=== PATIENT | male | born 1985 | race Two or more races ===

== ENCOUNTER 2022-03-28 17:54 | Inpatient (IN) | payer OTHER ==
[2022-03-28 20:35] VITALS: BMI 24.3
[2022-03-28] MEDS ORDERED: ONDANSETRON *ODT* 4 MG TABLET SL PRN (22:59)
[2022-03-28] MEDS ORDERED: BISMUTH SUBSALICYLATE 524 MG/30 ML PO PRN (22:59)
[2022-03-28] MEDS ORDERED: BENZOCAINE/MENTHOL (CHLORASEPTIC ) LOZENGE MM PRN (22:59)
[2022-03-28] MEDS ORDERED: MAG HYDROX/AL HYDROX/SIMETH 30 ML UNIT-DOSE CUP PO PRN (22:59)
[2022-03-28] MEDS ORDERED: MAGNESIUM HYDROX 2400MG/30ML ORAL SUSPENSION 30 ML CUP PO PRN (22:59)
[2022-03-28] MEDS ORDERED: NALOXONE HCL (KLOXXADO) 8 MG SPRAY NS PRN (22:59)
[2022-03-28] MEDS ORDERED: ACETAMINOPHEN 325 MG TABLET (FP) PO PRN ×2 (22:59)
[2022-03-28] MEDS ORDERED: LOPERAMIDE HCL 2 MG CAPSULE PO PRN (22:59)
[2022-03-28] MEDS ORDERED: IBUPROFEN 400 MG TABLET (FP) PO PRN (22:59)
[2022-03-28] MEDS ORDERED: POLYETHYLENE GLYCOL (HEALTHYLAX) 3350 17 GM PACKET PO PRN (22:59)
[2022-03-28] MEDS ORDERED: DICYCLOMINE HCL 10 MG CAPSULE PO PRN (22:59)
[2022-03-28] MEDS ORDERED: NICOTINE POLACRILEX 2 MG GUM BUC PRN (22:59)
[2022-03-28] MEDS ORDERED: chlordiazePOXIDE HCL 25 MG CAPSULE PO PRN (22:59)
[2022-03-29] MEDS: chlordiazePOXIDE HCL 25 MG CAPSULE PO SCH ×5 (02:42→22:19)
[2022-03-29] MEDS: NICOTINE 14 MG/24 HOURS TOPICAL PATCH TD SCH (10:40)
[2022-03-29] MEDS: PRENATAL VITAMINS W/ FOLIC ACID TABLET (FP) PO SCH (10:40)
[2022-03-29] MEDS ORDERED: FLU VACC QS2022-23(6MOS UP)/PF 60 MCG/0.5 ML SYRINGE IM ONE (12:00)
[2022-03-29 13:00] LABS: ALBUMIN 3.5 g/dl (3.4-5.0); BLOOD UREA NITROGEN 20.2 mg/dL (7-18)
[2022-03-29 13:03] LABS: CREATININE 0.9 mg/dL (0.55-1.3)
[2022-03-29 13:04] LABS: BILIRUBIN,TOTAL 0.4 mg/dL (0.2-1); TOT PROT 6.2 g/dl (6.4-8.2)
[2022-03-29 13:12] LABS: HEMATOCRIT 42.3 % (35.4-49); HEMOGLOBIN 13.9 GM/dL (11.7-16.9); MCH 28.7 pg (25.7-33.7); MCHC 32.8 g/dl (32.0-35.9); MEAN CELL VOLUME 87.6 fl (80-96); PLATELET COUNT 200 10^3/uL (134-434); RBC 4.83 M/mm3 (4.00-5.60); RDW 14.7 % (11.9-15.9); WHITE BLOOD COUNT 5.8 K/mm3 (4.0-10.0)
[2022-03-29] MEDS: MELATONIN 5 MG TABLETS PO SCH (22:19)
[2022-03-29] MEDS: THIAMINE HCL 100 MG TABLET (FP) PO SCH (22:19)
[2022-03-29] MEDS: OLANZapine 10 MG TABLET PO SCH (22:19)
[2022-03-29] MEDS: METHOCARBAMOL 500 MG TABLET PO PRN (22:19)
[2022-03-30] MEDS: chlordiazePOXIDE HCL 25 MG CAPSULE PO SCH ×4 (05:51→21:59)
[2022-03-30] MEDS: NICOTINE 14 MG/24 HOURS TOPICAL PATCH TD SCH (10:13)
[2022-03-30] MEDS: PRENATAL VITAMINS W/ FOLIC ACID TABLET (FP) PO SCH (10:13)
[2022-03-30] MEDS: MELATONIN 5 MG TABLETS PO SCH (21:58)
[2022-03-30] MEDS: THIAMINE HCL 100 MG TABLET (FP) PO SCH (21:58)
[2022-03-30] MEDS: METHOCARBAMOL 500 MG TABLET PO PRN (21:58)
[2022-03-30] MEDS: OLANZapine 10 MG TABLET PO SCH (21:59)
[2022-03-30] MEDS: IBUPROFEN 600 MG TABLET (FP) PO PRN (22:00)
[2022-03-31] MEDS ORDERED: chlordiazePOXIDE HCL 10 MG CAPSULE PO PRN
[2022-03-31] MEDS: chlordiazePOXIDE HCL 10 MG CAPSULE PO SCH ×4 (05:43→22:00)
[2022-03-31] MEDS: PRENATAL VITAMINS W/ FOLIC ACID TABLET (FP) PO SCH (10:08)
[2022-03-31] MEDS: NICOTINE 14 MG/24 HOURS TOPICAL PATCH TD SCH (10:08)
[2022-03-31] MEDS: IBUPROFEN 600 MG TABLET (FP) PO PRN (17:33)
[2022-03-31] MEDS: OLANZapine 10 MG TABLET PO SCH (21:59)
[2022-03-31] MEDS: THIAMINE HCL 100 MG TABLET (FP) PO SCH (21:59)
[2022-03-31] MEDS: MELATONIN 5 MG TABLETS PO SCH (21:59)
[2022-03-31] MEDS: METHOCARBAMOL 500 MG TABLET PO PRN (22:01)
[2022-04-01] MEDS: chlordiazePOXIDE HCL 10 MG CAPSULE PO SCH ×2 (05:51→17:17)
[2022-04-01] MEDS: PRENATAL VITAMINS W/ FOLIC ACID TABLET (FP) PO SCH (10:06)
[2022-04-01] MEDS: NICOTINE 14 MG/24 HOURS TOPICAL PATCH TD SCH (10:06)
[2022-04-01] MEDS: METHOCARBAMOL 500 MG TABLET PO PRN (17:18)
[2022-04-01] MEDS: THIAMINE HCL 100 MG TABLET (FP) PO SCH (22:04)
[2022-04-01] MEDS: OLANZapine 10 MG TABLET PO SCH (22:04)
[2022-04-01] MEDS: MELATONIN 5 MG TABLETS PO SCH (22:04)
[2022-04-02] MEDS ORDERED: chlordiazePOXIDE HCL 10 MG CAPSULE PO ONE (05:00)
[2022-04-02 06:34] VITALS: BP 122/75; PULSE 74; RESP 18; TEMP 96.6
== END 2022-04-02 08:54 | disposition home or self-care (01) | DRG 774 ==
LOC: YASAS 17:54 → EDBD 17:54 → Y3N 03-29 02:18
PROVIDERS: ADMIT Allergy & Immunology; ATTEND Surgery
PROC: HZ2ZZZZ Detoxification Services for Substance Abuse Treatment (ICD-10-PCS; principal; 2022-03-29)
DX: F10.230 Alcohol dependence with withdrawal, uncomplicated (principal); F14.20 Cocaine dependence, uncomplicated; F12.20 Cannabis dependence, uncomplicated; F17.210 Nicotine dependence, cigarettes, uncomplicated; F19.282 Other psychoactive substance dependence with psychoactive substance-induced sleep disorder; F19.24 Other psychoactive substance dependence with psychoactive substance-induced mood disorder; F20.9 Schizophrenia, unspecified; F31.9 Bipolar disorder, unspecified; F41.9 Anxiety disorder, unspecified; J45.909 Unspecified asthma, uncomplicated; I25.2 Old myocardial infarction; R79.89 Other specified abnormal findings of blood chemistry
CPT/HCPCS: 36415; 80053; 85027; 86780; 93005; 93010; C9803-CS; U0003; U0005